=== PATIENT | female | born 1985 | race Caucasian/White ===

== ENCOUNTER 2022-02-24 08:23 | Outpatient (CLI) | payer BC | END 2022-02-24 08:24 | disposition home or self-care (01) | LOC: CSHLAB 08:23 | PROVIDERS: ATTEND Obstetrics & Gynecology | DX: Z01.812 Encounter for preprocedural laboratory examination (principal); Z20.822 Contact with and (suspected) exposure to COVID-19 | CPT/HCPCS: 85027; 86850; 86900; 86901; 87811 ==

== ENCOUNTER 2022-02-26 07:28 | Day surgery (SDC) | payer BC ==
[2022-02-24 09:54] LABS: Hemoglobin 13.5 g/dL (12.0-15.5); Mean Corpuscular HGB CONC 34.1 g/dL (32.0-36.0); Mean Corpuscular Hemoglobin 30.3 pg (27.0-33.0); Mean Platelet Volume 9.5 fl (7.4-10.4); Platelet Count 310 10x3/uL (150-450); RBC Distribution Width 12.4 % (11.5-14.5); Red Blood Cell (RBC) Count 4.45 10x6/uL (3.90-5.03); White Blood Cell (WBC) Count 8.6 10x3/uL (3.5-10.5)
[2022-02-24 10:19] VITALS: BMI 33.9
[2022-02-26] MEDS ORDERED: Methylergonovine 0.2 MG/ML VIAL ONE ×2 (09:36→10:40)
[2022-02-26] MEDS ORDERED: CEFAZOLIN 2 GM VIAL ONE (09:44)
[2022-02-26] MEDS ORDERED: PROPOFOL 20 ML ONE (09:47)
[2022-02-26] MEDS ORDERED: Midazolam HCl 2 mg/2 ml Vial ONE (09:47)
[2022-02-26] MEDS ORDERED: Fentanyl 100 MCG/2 ML VIAL ONE (09:47)
[2022-02-26] MEDS ORDERED: Rocuronium Bromide 10 MG/ML (10ML VIAL) ONE (09:48)
[2022-02-26] MEDS ORDERED: Dexamethasone 4 mg/ml Vial ONE (09:48)
[2022-02-26] MEDS ORDERED: Lidocaine 1% PF 5 ML VIAL ONE (09:49)
[2022-02-26] MEDS ORDERED: Silver Nitrate Application 1 EACH ONE (10:19)
== END 2022-02-26 11:30 | disposition home or self-care (01) ==
LOC: CSHSDC 07:28
PROVIDERS: ATTEND Obstetrics & Gynecology
PROC: 10D17ZZ Extraction of Products of Conception, Retained, Via Natural or Artificial Opening (ICD-10-PCS; principal; 2022-02-26)
DX: O02.1 Missed abortion (principal); E66.9 Obesity, unspecified; Z68.33 Body mass index [BMI] 33.0-33.9, adult; Z20.822 Contact with and (suspected) exposure to COVID-19
CPT/HCPCS: 85027; 86850; 86900; 86901; 87811; 88305; 90384; 96372; J0690; J1100; J2210; J2250; J2704; J3010

== ENCOUNTER 2025-04-15 10:50 | Inpatient (IN) | payer OTHER ==
[2025-04-15 11:24] VITALS: BMI 43.0
[2025-04-15] MEDS ORDERED: hydrALAZINE 20 MG/ML VIAL SLOW IVP PRN (11:32)
[2025-04-15 12:53] LABS: #Basophils 0.05 10x3/uL (0.0-0.2); #Eosinophils 0.18 10x3/uL (0.0-0.5); #Monocytes 1.01 10x3/uL (0.0-1.1); #Neutrophils 9.90 10x3/uL (1.5-8.4); %Basophils 0.4 % (0.0-2.0); %Eosinophils 1.4 % (0.0-6.0); %Lymphocytes 15.5 % (18.0-47.0); %Monocytes 7.6 % (0.0-10.0); %Neutrophils 74.6 % (40.0-75.0); Hematocrit 35.9 % (34.9-44.5); Hemoglobin 12.4 g/dL (12.0-15.5); Mean Corpuscular Hemoglobin 30.2 pg (27.0-33.0); Mean Corpuscular Volume 87.3 fL (81.6-98.3); Platelet Count 340 10x3/uL (150-450); Red Blood Cell (RBC) Count 4.11 10x6/uL (3.90-5.03); White Blood Cell (WBC) Count 13.26 10x3/uL (3.5-10.5)
[2025-04-15 13:20] LABS: ALT (SGPT) 12 U/L (Less than 34); AST (SGOT) 20 U/L (11-34); Albumin 3.2 g/dL (3.1-4.5); Alkaline Phosphatase 148 U/L (40-110); Anion Gap 14 mmol/L (10-20); BUN (Urea Nitrogen) 12 mg/dL (7.0-18.7); Bilirubin, Total 0.5 mg/dL (0.3-1.2); Calc. Creatinine Clearance 260 mL/min (70-130); Calcium 8.9 mg/dL (7.8-10.44); Carbon Dioxide 21 mmol/L (22-29); Chloride 106 mmol/L (98-107); Globulin 3.5 g/dL (2.4-3.5); Glucose 82 mg/dL (70-105); Potassium 4.2 mmol/L (3.5-5.1); Sodium 137 mmol/L (136-145)
[2025-04-15 13:24] LABS: Protein, Urine Random Quant 25.0 mg/dL (1-14)
[2025-04-15] MEDS ORDERED: Lidocaine 1% (PF) 30 ML VIAL SC PRN (15:23)
[2025-04-15] MEDS ORDERED: Ondansetron PF 4 MG/2 ML Vial IVP PRN ×2 (15:23→23:49)
[2025-04-15] MEDS ORDERED: Acetaminophen 500 MG TAB PO PRN (15:23)
[2025-04-15] MEDS ORDERED: Tranexamic Acid 1,000 MG/10 ML VIAL IVP PRN (15:23)
[2025-04-15] MEDS ORDERED: Diphenoxylate HCl/Atropine Tablet PO PRN ×2 (15:23)
[2025-04-15] MEDS ORDERED: Ibuprofen 800 MG TAB PO PRN (15:23)
[2025-04-15] MEDS ORDERED: Carboprost 250 MCG/ML AMP IM PRN (15:23)
[2025-04-15] MEDS ORDERED: Oxytocin 30 units/NS 500 ML 500 ML IV SCH (15:30)
[2025-04-15 18:13] LABS: Hematocrit 37.4 % (34.9-44.5); Hemoglobin 12.5 g/dL (12.0-15.5); Mean Corpuscular Hemoglobin 29.3 pg (27.0-33.0); Mean Corpuscular Volume 87.6 fL (81.6-98.3); Platelet Count 302 10x3/uL (150-450); Red Blood Cell (RBC) Count 4.27 10x6/uL (3.90-5.03); White Blood Cell (WBC) Count 13.21 10x3/uL (3.5-10.5)
[2025-04-15 19:44] LABS: Syphilis Antibody Index 0.06 S/CO (<1.00 Non-Reactive)
[2025-04-15 19:45] LABS: Hep B Surf Ag - L&D Non-Reactive S/CO (NonReactive)
[2025-04-15] MEDS: Oxytocin 30 units/NS 500 ML 500 ML IV SCH (21:15)
[2025-04-15] MEDS: fentaNYL/Ropivacaine Epidural 100 ML ONE (23:24)
[2025-04-15] MEDS ORDERED: Communication Order-Pharmacy FS SCH (23:45)
[2025-04-15] MEDS ORDERED: diphenhydrAMINE 50 MG/ML VIAL IVP PRN (23:49)
[2025-04-16] MEDS: fentaNYL 2 mcg/Ropivacaine 0.2% Epidural 100 ML CADD EPIDURAL SCH (08:49)
[2025-04-16] MEDS ORDERED: Bicitra 30 ML UDCUP PO PRN (10:06)
[2025-04-16] MEDS ORDERED: Azithromycin 500 MG in Sodium Chloride 0.9% 250 ML 250 ML IVPB SCH (10:15)
[2025-04-16] MEDS: Azithromycin 500 MG in Sodium Chloride 0.9% 250 ML 250 ML IVPB SCH (10:44)
[2025-04-16] MEDS: Famotidine/PF 20 mg/2ml Vial SLOW IVP PRN (10:44)
[2025-04-16] MEDS: CEFAZOLIN 3 GM, Admixture Fee 1 EACH in Sodium Chloride 0.9% 100 ML IVPB SCH (10:45)
[2025-04-16 11:34] LABS: Analyzer IN Cardio CS NICU; Critical Notified By: clumpkins rt
[2025-04-16 11:39] LABS: Analyzer IN Cardio CS NICU; Critical Notified By: clumpkins rt; pH (Cord, venous) 7.144 (7.250-7.350)
[2025-04-16] MEDS ORDERED: hydrALAZINE 20 MG/ML VIAL SLOW IVP PRN (11:42)
[2025-04-16] MEDS ORDERED: Bisacodyl 10 MG SUPP PR PRN (11:42)
[2025-04-16] MEDS ORDERED: Ondansetron PF 4 MG/2 ML Vial IVP PRN ×2 (11:42→12:47)
[2025-04-16] MEDS ORDERED: Simethicone Chewable 80 MG TAB PO PRN (11:42)
[2025-04-16] MEDS ORDERED: Lanolin Ointment 7 GM TUBE TOP PRN (11:42)
[2025-04-16] MEDS ORDERED: diphenhydrAMINE 25 MG CAP PO PRN (11:42)
[2025-04-16] MEDS ORDERED: Meperidine HCl/PF 25 MG (1 mL) VIAL SLOW IVP PRN (12:47)
[2025-04-16] MEDS ORDERED: diphenhydrAMINE 50 MG/ML VIAL IVP PRN (12:47)
[2025-04-16] MEDS ORDERED: HYDROmorphone 0.5 MG/0.5 ML SYRINGE SLOW IVP PRN (12:47)
[2025-04-16] MEDS ORDERED: Communication Order-Pharmacy FS SCH (13:00)
[2025-04-16] MEDS: Ondansetron PF 4 MG/2 ML Vial IVP PRN (14:44)
[2025-04-16] MEDS: Ketorolac Tromethamine 30 MG (1 mL) VIAL IVP SCH (14:50)
[2025-04-16] MEDS: fentaNYL/Ropivacaine Epidural 100 ML ONE (17:56)
[2025-04-16] MEDS: Ondansetron PF 4 MG/2 ML Vial ONE (17:57)
[2025-04-16] MEDS: Erythromycin Base 0.5% Oint 1 GM TUBE ONE (17:57)
[2025-04-16] MEDS: Oxytocin 10 UNITS/ML VIAL ONE (17:57)
[2025-04-16] MEDS ORDERED: Bupivacaine HCl 0.5%/Epinephrine 1:200,000/PF 30 ml Vial ONE (19:03)
[2025-04-16] MEDS ORDERED: Lidocaine 2% MPF 10 ML AMP (For Epidural Use) ONE (19:03)
[2025-04-16] MEDS: Ketorolac Tromethamine 30 MG (1 mL) VIAL IVP PRN (20:48)
[2025-04-16] MEDS: Ferrous Sulfate 325 MG TAB PO SCH (21:07)
[2025-04-16] MEDS ORDERED: HYDROcodone/Acetaminophen 5/325 mg Tablet PO PRN (23:50)
[2025-04-17 08:55] LABS: Hematocrit 28.1 % (34.9-44.5); Hemoglobin 9.6 g/dL (12.0-15.5); Mean Corpuscular Hemoglobin 30.3 pg (27.0-33.0); Mean Corpuscular Volume 88.6 fL (81.6-98.3); Platelet Count 251 10x3/uL (150-450); Red Blood Cell (RBC) Count 3.17 10x6/uL (3.90-5.03); White Blood Cell (WBC) Count 15.81 10x3/uL (3.5-10.5)
[2025-04-17] MEDS: Enoxaparin 40 MG (0.4 mL) SYRINGE SC SCH (09:19)
[2025-04-17] MEDS: Ibuprofen 800 MG TAB PO SCH (21:08)
[2025-04-18] MEDS: Acetaminophen 325 MG TAB PO PRN (01:36)
[2025-04-18 11:20] VITALS: BP 137/70; TEMP 97.6
== END 2025-04-18 13:15 | disposition home or self-care (01) | DRG 788 ==
LOC: CSHLD/OP 10:50 → CSHLD 15:20 → CSHPP 04-16 15:07
PROVIDERS: ADMIT Family Medicine; ATTEND Family Medicine
PROC: 10D00Z1 Extraction of Products of Conception, Low, Open Approach (ICD-10-PCS; principal; 2025-04-16)
DX: O99.214 Obesity complicating childbirth (principal); Z37.0 Single live birth; Z3A.39 39 weeks gestation of pregnancy; Z98.890 Other specified postprocedural states; F17.210 Nicotine dependence, cigarettes, uncomplicated; O76 Abnormality in fetal heart rate and rhythm complicating labor and delivery; E66.813 Obesity, class 3; Z79.899 Other long term (current) drug therapy
CPT/HCPCS: 36415; 51702; 76816; 76819; 80053; 82570; 82805; 84156; 85025; 85027; 86780; 86850; 86900; 86901; 87340; 99285; J0456; J1308; J1650; J1885; J2274; J2405; J2550; J2590; J3010; J7050; J7120